=== PATIENT | male | born 1985 | race Caucasian/White ===

== ENCOUNTER 2017-09-23 18:50 | Emergency (ER) | payer OTHER ==
[2017-09-23 18:55] VITALS: TEMP 98.9
[2017-09-23 19:27] LABS: BASO % 0.4 % (0.0-2.0); EOS # 0.2 (0.0-0.7); EOS % 1.8 % (0-4.0); GRAN # 5.2 (1.4-6.5); GRAN % 63.2 % (42.2-75.2); HEMATOCRIT 41.9 % (42.0-52.0); LYMPH # 2.3 (1.2-3.4); LYMPH % 27.4 % (20.0-51.0); MEAN CELL VOLUME 89 fl (80.0-100.0); MEAN CORPUSCULAR HEMOGLOBIN 32 pg (27.0-31.0); MEAN CORPUSCULAR HGB CONC 36 g/dl (33.0-37.0); MEAN PLATELET VOLUME 9.3 fl (7.4-10.4); MONO # 0.6 (0.1-0.6); PLATELET COUNT 301 K/mm3 (130-400); RED BLOOD COUNT 4.71 M/mm3 (4.20-5.60); REDCELL DISTRIBUTION WIDTH-CV 11.9 % (11.5-14.5)
[2017-09-23] MEDS ORDERED: HCTZ12.5TAB PO (19:32)
[2017-09-23 19:33] LABS: ALBUMIN 4.3 gm/dL (3.5-5.0); BILIRUBIN,TOTAL 0.5 mg/dL (0.0-1.0); CALCIUM 9.2 mg/dL (8.4-10.2); CREATININE, serum 0.66 mg/dL (0.66-1.25); POTASSIUM 3.3 mmol/L (3.4-5.0); TOTAL PROTEIN 7.3 gm/dL (6.4-8.2)
[2017-09-23] MEDS ORDERED: WELLBUTRIN SR100 M1 PO (19:33)
[2017-09-23] MEDS ORDERED: CELEBREX 200MG200 MG PO (19:33)
[2017-09-23] MEDS ORDERED: ZOLOFT 50MG50 MG PO (19:33)
[2017-09-23 19:54] LABS: COLLECTION METHOD CLEAN CATCH
[2017-09-23 20:00] LABS: MUCOUS Present /lpf; PH 5 (5-8); SQUAMOUS EPITHELIAL None Seen /hpf; URINE APPEARANCE Clear; URINE BACTERIA None Seen /hpf; URINE BILIRUBIN Negative (NEGATIVE); URINE BLOOD Negative (NEGATIVE); URINE COLOR Yellow; URINE GLUCOSE Negative (NEGATIVE); URINE KETONE Negative (NEGATIVE); URINE LEUKOCYTE ESTERASE Negative (NEGATIVE); URINE NITRATE Negative (NEGATIVE); URINE PROTEIN(semi-quant) Negative (NEGATIVE); URINE RBC 0-2 /hpf
[2017-09-23 22:15] VITALS: BP 130/82; PULSE 89
== END 2017-09-23 22:15 | disposition home or self-care (01) ==
LOC: COL.ER 18:50
PROVIDERS: Emergency Medicine
DX: R10.9 Unspecified abdominal pain (principal); I10 Essential (primary) hypertension; Z98.890 Other specified postprocedural states
CPT/HCPCS: J1885; J3010; J7030

== ENCOUNTER 2018-08-05 09:21 | Emergency (ER) | payer OTHER ==
[~2018-08-05] VITALS: Ht 175.3 cm; Wt 97.7 kg
[~2018-08-05 09:21] MED LIST: CELEBREX 200MG200 MG PO; HCTZ12.5TAB PO; WELLBUTRIN SR100 M1 PO; ZOLOFT 50MG50 MG PO
[2018-08-05 09:27] VITALS: BP 131/85
[2018-08-05] MEDS ORDERED: NORCO 325 MG-7.1 TAB PO (09:42)
[2018-08-05] MEDS ORDERED: MOBIC15 MG PO (09:43)
[2018-08-05] MEDS ORDERED: NEURONTIN300 MG/CAP PO (09:44)
[2018-08-05] MEDS ORDERED: PROZAC 20MG20 MG PO (09:45)
[2018-08-05 10:25] LABS: COLLECTION METHOD CLEAN CATCH
[2018-08-05 10:34] LABS: MUCOUS Present /lpf; PH 6 (5-8); SQUAMOUS EPITHELIAL None Seen /hpf; URINE APPEARANCE Clear; URINE BACTERIA None Seen /hpf; URINE BILIRUBIN Negative (NEGATIVE); URINE BLOOD Negative (NEGATIVE); URINE COLOR Yellow; URINE GLUCOSE Negative (NEGATIVE); URINE KETONE Negative (NEGATIVE); URINE LEUKOCYTE ESTERASE Negative (NEGATIVE); URINE NITRATE Negative (NEGATIVE); URINE PROTEIN(semi-quant) Negative (NEGATIVE); URINE RBC 0-2 /hpf; URINE UROBILINOGEN Negative (NEGATIVE)
[2018-08-05] MEDS ORDERED: FLEXERIL 1010 MG/TAB PO ×3 (10:54→11:35)
[2018-08-05] MEDS ORDERED: PERCOCET 325 MG1 TA2 PO (10:54)
[2018-08-05 11:15] VITALS: PULSE 76; TEMP 96.7
== END 2018-08-05 11:15 | disposition home or self-care (01) ==
LOC: COL.ER 09:21
PROVIDERS: Physician Assistant
DX: M54.5 Low back pain (principal); G89.29 Other chronic pain; I10 Essential (primary) hypertension; M16.0 Bilateral primary osteoarthritis of hip; M17.0 Bilateral primary osteoarthritis of knee; M51.36 Other intervertebral disc degeneration, lumbar region; F17.290 Nicotine dependence, other tobacco product, uncomplicated; Z79.899 Other long term (current) drug therapy; Z87.442 Personal history of urinary calculi
CPT/HCPCS: J1885

== ENCOUNTER 2019-03-10 00:38 | Emergency (ER) | payer OTHER ==
[~2019-03-10] VITALS: Ht 172.7 cm; Wt 97.7 kg
[~2019-03-10 00:38] MED LIST changes: +FLEXERIL 1010 MG/TAB PO; +MOBIC15 MG PO; +NEURONTIN300 MG/CAP PO; +NORCO 325 MG-7.1 TAB PO; +PERCOCET 325 MG1 TA2 PO; +PROZAC 20MG20 MG PO
[2019-03-10 00:44] VITALS: TEMP 98.5
[2019-03-10] MEDS ORDERED: CEFTIN500 MG PO (01:17)
[2019-03-10] MEDS ORDERED: PREDNISONE20 MG PO (01:17)
[2019-03-10 02:30] VITALS: BP 106/68; PULSE 81
== END 2019-03-10 02:30 | disposition home or self-care (01) ==
LOC: COL.ER 00:38
DX: T36.8X1A Poisoning by other systemic antibiotics, accidental (unintentional), initial encounter (principal); I10 Essential (primary) hypertension; F41.8 Other specified anxiety disorders; F17.220 Nicotine dependence, chewing tobacco, uncomplicated
CPT/HCPCS: J1200; J2930; J7030

== ENCOUNTER 2023-09-01 21:04 | Emergency (ER) | payer SELFPAY ==
[~2023-09-01] VITALS: Ht 172.7 cm; Wt 102.3 kg
[~2023-09-01 21:04] MED LIST changes: +CEFTIN500 MG PO; +PREDNISONE20 MG PO
[2023-09-01 21:11] VITALS: TEMP 98.1
[2023-09-01] MEDS ORDERED: CEPHALEXIN500 M1 PO (22:13)
[2023-09-01 22:30] VITALS: BP 128/87; PULSE 81
== END 2023-09-01 22:30 | disposition home or self-care (01) ==
LOC: COL.ER 21:04
DX: L03.116 Cellulitis of left lower limb (principal); Z88.2 Allergy status to sulfonamides